=== PATIENT | female | born 1995 | race Caucasian/White ===

== ENCOUNTER → 2016-10-01 | Outpatient (CLI) | payer BC, OTHER ==
--- NOTE | 2016-10-02 04:31 | REP ---
Clinical: Dyspareunia . Technique: Transabdominal pelvic ultrasound followed by transvaginal examination for better evaluation of the endometrium and adnexa . Findings: Bladder is unremarkable and measures 7.9 x 5.7 x 9.7 cm . Normal anteverted uterus measures 7.7 x 3.1 x 4.8 cm . The endometrial complex measures 5.7 mm thickness. No discrete uterine or endometrial abnormalities are appreciated. Bilateral ovaries are normal in appearance and vascularity without evidence for torsion. Right ovary measures 2.6 x 1.1 x 1.2 cm. Left ovary measures 2.7 x 1.1 x 1.0 cm. No adnexal fluid or mass lesion. . Impression: 1. Normal pelvic ultrasound. Signed by Don Early MD 10/02/2016 04:22 A
== END ==
LOC: M WHC 10:46
PROVIDERS: ATTEND Nurse Practitioner Women's Health
DX: N94.10 Unspecified dyspareunia (principal)

== ENCOUNTER → 2017-12-13 | Outpatient (REF) | payer BC, OTHER | LOC: M SFHCWAGY 15:28 | DX: Z12.4 Encounter for screening for malignant neoplasm of cervix (principal) | CPT/HCPCS: G0123 ==

== ENCOUNTER → 2017-12-13 | Outpatient (REF) | payer BC, OTHER ==
[2017-12-13 19:47] LABS: CHLAMYDIA DNA AMPLIFICATION NEGATIVE (NEGATIVE); GC DNA AMPLIFICATION NEGATIVE (NEGATIVE)
== END ==
LOC: M SFHCWAGY 16:57
DX: Z11.3 Encounter for screening for infections with a predominantly sexual mode of transmission (principal)
CPT/HCPCS: 87591